=== PATIENT | female | born 1930 | race Caucasian/White ===

== ENCOUNTER 2022-01-27 15:29 | Inpatient (IN) | payer OTHER ==
[~2022-01-27] VITALS: Ht 162.6 cm; Wt 49.9 kg
[2022-01-27 17:24] LABS: INR 0.94 (0.9-1.15)
[2022-01-27 17:52] LABS: Albumin 3.2 g/dL (3.4-5.0); Calcium 8.8 mg/dL (8.5-10.1); Potassium 4.1 mmol/L (3.5-5.1)
[2022-01-27 17:55] LABS: Bilirubin, Total 0.3 mg/dL (0.2-1.0)
[2022-01-27 18:11] LABS: Urine Bacteria NONE SEEN /hpf (None Seen); Urine Blood Negative /uL (Negative); Urine Specific Gravity 1.009 (1.001-1.035); Urine WBC <1 /hpf (0 - 5)
[2022-01-27 19:00] LABS: Basophils # (auto) 0 10 ^3/uL (0-0.2); Basophils % (auto) 0.4 % (0.0-2.0); Eosinophils # (auto) 0.1 10 ^3/uL (0-0.8); Eosinophils % (auto) 0.4 % (0.0-7.0); Hematocrit 32.8 % (36.0-46.0); Hemoglobin 11.1 g/dL (12.2-16.2); Lymphocytes # (auto) 1.2 10 ^3/uL (0.4-5.4); Lymphocytes % (auto) 9.3 % (10.0-50.0); Mean Corpuscular Hemoglobin 29.2 pg (28.0-32.0); Mean Corpuscular Hgb Conc. 33.8 g/dL (32.0-36.0); Mean Corpuscular Volume 86.4 fL (80.0-100.0); Monocytes # (auto) 0.8 10 ^3/uL (0-1.3); Neutrophils % (auto) 83.9 % (37.0-80.0); Red Blood Cells 3.79 10^6/uL (4.0-5.20); Red Cell Distribution Width 13.7 % (11.8-14.3); White Blood Cell 13.1 10^3/uL (4.4-10.8)
[2022-01-27] MEDS ORDERED: MORPHINE SULFATE 4 MG/ML SYR/VIAL IV ONE (19:15)
[2022-01-27] MEDS ORDERED: ONDANSETRON HCL 4 MG/2 ML VIAL IV ONE (19:15)
[2022-01-28] MEDS ORDERED: MORPHINE SULFATE INJ 2 MG/ml SYRG IV ONE (03:45)
[2022-01-28] MEDS ORDERED: ACETAMINOPHEN 325 MG TAB PO PRN (06:45)
[2022-01-28] MEDS ORDERED: MORPHINE SULFATE INJ 2 MG/ml SYRG IV PRN (06:45)
[2022-01-28] MEDS ORDERED: NITROGLYCERIN 0.4 MG SL TAB SL PRN (06:45)
[2022-01-28] MEDS: MORPHINE SULFATE INJ 2 MG/ml SYRG IV PRN ×2 (08:36→19:52)
[2022-01-29] MEDS: MORPHINE SULFATE INJ 2 MG/ml SYRG IV PRN (00:53)
[2022-01-29] MEDS: D5W/SOD CHLO 0.9% 1,000 ML IV SCH ×2 (00:54→12:35)
[2022-01-29 07:02] LABS: Basophils # (auto) 0 10 ^3/uL (0-0.2); Basophils % (auto) 0.3 % (0.0-2.0); Eosinophils # (auto) 0.3 10 ^3/uL (0-0.8); Eosinophils % (auto) 2.2 % (0.0-7.0); Hematocrit 33.4 % (36.0-46.0); Hemoglobin 11.3 g/dL (12.2-16.2); Lymphocytes % (auto) 6.9 % (10.0-50.0); Mean Corpuscular Hemoglobin 29.3 pg (28.0-32.0); Mean Corpuscular Hgb Conc. 33.8 g/dL (32.0-36.0); Mean Corpuscular Volume 86.5 fL (80.0-100.0); Monocytes # (auto) 0.9 10 ^3/uL (0-1.3); Monocytes % (auto) 6.2 % (0.0-12.0); Neutrophils # (auto) 11.7 10 ^3/uL (1.6-8.6); Neutrophils % (auto) 84.4 % (37.0-80.0); Red Blood Cells 3.86 10^6/uL (4.0-5.20); Red Cell Distribution Width 13.9 % (11.8-14.3); White Blood Cell 13.9 10^3/uL (4.4-10.8)
[2022-01-29 07:06] LABS: Calcium 8.8 mg/dL (8.5-10.1); Magnesium 2.3 mg/dL (1.6-2.6); Potassium 3.8 mmol/L (3.5-5.1)
[2022-01-29 07:12] LABS: BUN/Creatinine Ratio 21.6
[2022-01-29 09:00] VITALS: BP 129/43
[2022-01-29] MEDS ORDERED: DONE1TAB88 PO (10:08)
[2022-01-29] MEDS ORDERED: ASPI-543 PO (11:42)
[2022-01-29] MEDS ORDERED: LORA10TA6 PO (11:45)
[2022-01-29] MEDS ORDERED: VALS40TA2 PO (11:45)
[2022-01-29 13:00] VITALS: BP 117/49
[2022-01-29] MEDS ORDERED: OLAN20TA PO (13:16)
[2022-01-29] MEDS ORDERED: LORA0.5T20 PO (13:16)
[2022-01-29 17:00] VITALS: BP 111/48
[2022-01-29] MEDS: D5W/SOD CHL 0.45% 1,000 ML IV SCH (20:00)
[2022-01-29 22:00] VITALS: BP 145/94
[2022-01-29] MEDS ORDERED: OLANZapine 5 MG TAB PO ONE (22:00)
[2022-01-30 04:00] VITALS: BP 132/78
[2022-01-30 08:51] VITALS: BP 133/63
[2022-01-30] MEDS ORDERED: VALSARTAN 80 MG TAB PO SCH (10:00)
[2022-01-30] MEDS: LORazepam 0.5 MG TAB PO PRN (11:50)
[2022-01-30] MEDS: D5W/SOD CHL 0.45% 1,000 ML IV SCH (12:49)
[2022-01-30 13:05] VITALS: BP 119/98
[2022-01-30] MEDS: HYDROcodone-ACET 5/325MG TAB PO PRN (13:22)
[2022-01-30] MEDS ORDERED: ENOXAPARIN SOD 40 MG/0.4 ML SYRINGE SC ONE (13:45)
[2022-01-30] MEDS ORDERED: FAMOTIDINE 20 MG TAB PO ONE (13:45)
[2022-01-30 16:33] VITALS: BP 114/65
[2022-01-30] MEDS ORDERED: ADENOSINE 6 MG/2 ML INJ IV ONE ×2 (20:03→20:07)
[2022-01-30] MEDS ORDERED: ETOMIDATE (2MG/ML) 20ML VIAL IV ONE (20:27)
[2022-01-30 21:52] VITALS: BP 145/73
[2022-01-30] MEDS ORDERED: FUROSEMIDE 20 MG/2 ML VIAL IV ONE (23:30)
[2022-01-30] MEDS ORDERED: METOPROLOL TARTRATE 25 MG TAB PO ONE (23:30)
[2022-01-31] MEDS: OLANZapine 5 MG TAB PO SCH ×2 (00:15→22:54)
[2022-01-31] MEDS: HYDROcodone-ACET 5/325MG TAB PO PRN ×2 (00:57→10:02)
[2022-01-31 08:49] VITALS: BP 140/95
[2022-01-31] MEDS: FUROSEMIDE 20 MG/2 ML VIAL IV SCH (09:47)
[2022-01-31] MEDS: FAMOTIDINE 20 MG TAB PO SCH (09:48)
[2022-01-31] MEDS: ENOXAPARIN SOD 40 MG/0.4 ML SYRINGE SC SCH (09:48)
[2022-01-31 09:57] LABS: Albumin 2.8 g/dL (3.4-5.0); Calcium 8.3 mg/dL (8.5-10.1); Potassium 3.9 mmol/L (3.5-5.1)
[2022-01-31] MEDS ORDERED: METOPROLOL TARTRATE 25 MG TAB PO SCH (10:00)
[2022-01-31 10:01] LABS: BUN/Creatinine Ratio 23.5; Bilirubin, Total 0.8 mg/dL (0.2-1.0); Total Protein 7.1 g/dL (6.4-8.2)
[2022-01-31 10:05] LABS: Basophils # (auto) 0.3 10 ^3/uL (0-0.2); Basophils % (auto) 1.7 % (0.0-2.0); Eosinophils # (auto) 0.9 10 ^3/uL (0-0.8); Eosinophils % (auto) 5.5 % (0.0-7.0); Hematocrit 34.5 % (36.0-46.0); Hemoglobin 11.6 g/dL (12.2-16.2); Lymphocytes # (auto) 1.2 10 ^3/uL (0.4-5.4); Mean Corpuscular Hemoglobin 29.4 pg (28.0-32.0); Mean Corpuscular Hgb Conc. 33.7 g/dL (32.0-36.0); Mean Corpuscular Volume 87.3 fL (80.0-100.0); Monocytes # (auto) 0.9 10 ^3/uL (0-1.3); Monocytes % (auto) 5.7 % (0.0-12.0); Neutrophils # (auto) 12.4 10 ^3/uL (1.6-8.6); Neutrophils % (auto) 79.1 % (37.0-80.0); Nucleated Red Blood Cells % 0.1 %; Red Blood Cells 3.95 10^6/uL (4.0-5.20); Red Cell Distribution Width 13.6 % (11.8-14.3); White Blood Cell 15.6 10^3/uL (4.4-10.8)
[2022-01-31 10:23] LABS: INR 1.03 (0.9-1.15); Partial Thromboplastin Time 26.8 sec (23.6-33.0)
[2022-01-31] MEDS ORDERED: METOPROLOL TARTRATE 1MG/1ML-5ML VIAL IV PRN (12:45)
[2022-01-31] MEDS ORDERED: METOPROLOL TARTRATE 25 MG TAB PO ONE (12:45)
[2022-01-31 13:00] VITALS: BP 103/61
[2022-01-31] MEDS ORDERED: AMIODARONE HCL 150 MG in D5W 5% 100 ML IV ONE (14:00)
[2022-01-31] MEDS ORDERED: AMIODARONE 450mg/250ml AE 250 ML IV SCH (14:15)
[2022-01-31 17:27] VITALS: BP 123/48
[2022-01-31] MEDS: AMIODARONE 450mg/250ml AE 250 ML IV SCH (20:33)
[2022-01-31 21:30] VITALS: BP 125/79
[2022-01-31] MEDS: METOPROLOL TARTRATE 25 MG TAB PO SCH (22:46)
[2022-02-01] MEDS: LORazepam 0.5 MG TAB PO PRN ×2 (01:14→12:56)
[2022-02-01] MEDS: MORPHINE SULFATE INJ 2 MG/ml SYRG IV PRN (02:30)
[2022-02-01 05:00] VITALS: BP 118/68
[2022-02-01] MEDS: FUROSEMIDE 20 MG/2 ML VIAL IV SCH (08:48)
[2022-02-01] MEDS: ENOXAPARIN SOD 40 MG/0.4 ML SYRINGE SC SCH (08:48)
[2022-02-01] MEDS: FAMOTIDINE 20 MG TAB PO SCH (08:48)
[2022-02-01] MEDS: METOPROLOL TARTRATE 25 MG TAB PO SCH ×2 (08:48→22:44)
[2022-02-01 09:00] VITALS: BP 119/84
[2022-02-01] MEDS: AMIODARONE 450mg/250ml AE 250 ML IV SCH (12:19)
[2022-02-01 13:00] VITALS: BP 123/50
[2022-02-01] MEDS: HYDROcodone-ACET 5/325MG TAB PO PRN (17:31)
[2022-02-01 22:00] VITALS: BP 121/53
[2022-02-01] MEDS: OLANZapine 5 MG TAB PO SCH (22:44)
[2022-02-01] MEDS: AMIODARONE HCL 200 MG TAB PO SCH (22:44)
[2022-02-02] MEDS: LORazepam 0.5 MG TAB PO PRN (01:52)
[2022-02-02 05:00] VITALS: BP 125/74
[2022-02-02 08:56] VITALS: BP 130/45
[2022-02-02] MEDS: FUROSEMIDE 20 MG/2 ML VIAL IV SCH (10:00)
[2022-02-02] MEDS: METOPROLOL TARTRATE 25 MG TAB PO SCH ×3 (10:00→22:00)
[2022-02-02] MEDS: ENOXAPARIN SOD 40 MG/0.4 ML SYRINGE SC SCH (10:30)
[2022-02-02] MEDS: FAMOTIDINE 20 MG TAB PO SCH (10:30)
[2022-02-02] MEDS: AMIODARONE HCL 200 MG TAB PO SCH ×3 (10:30→22:00)
[2022-02-02 13:00] VITALS: BP 149/60
[2022-02-02 17:00] VITALS: BP 121/63
[2022-02-02] MEDS: OLANZapine 5 MG TAB PO SCH ×2 (21:49→22:00)
[2022-02-02 22:00] VITALS: BP 139/53
[2022-02-03 05:00] VITALS: BP 120/45
[2022-02-03 08:52] VITALS: BP 104/44
[2022-02-03] MEDS: FUROSEMIDE 20 MG/2 ML VIAL IV SCH (09:52)
[2022-02-03] MEDS: METOPROLOL TARTRATE 25 MG TAB PO SCH (09:53)
[2022-02-03] MEDS: FAMOTIDINE 20 MG TAB PO SCH (10:00)
[2022-02-03] MEDS: AMIODARONE HCL 200 MG TAB PO SCH (10:00)
[2022-02-03] MEDS: ENOXAPARIN SOD 40 MG/0.4 ML SYRINGE SC SCH (10:01)
== END 2022-02-03 11:30 | disposition hospice, home (50) | DRG 536 ==
LOC: EDBD 15:29 → ER 15:29 → TELE 01-28 06:32 → TELE-WESTW 01-29 09:02
PROVIDERS: ADMIT Nurse Practitioner; ATTEND Internal Medicine Geriatric Medicine
PROC: 5A2204Z Restoration of Cardiac Rhythm, Single (ICD-10-PCS; principal; 2022-01-28)
DX: S72.141A Displaced intertrochanteric fracture of right femur, initial encounter for closed fracture (principal); E44.0 Moderate protein-calorie malnutrition; I47.1 Supraventricular tachycardia; I10 Essential (primary) hypertension; F03.90 Unspecified dementia, unspecified severity, without behavioral disturbance, psychotic disturbance, mood disturbance, and anxiety; F41.9 Anxiety disorder, unspecified; Z66 Do not resuscitate; I08.0 Rheumatic disorders of both mitral and aortic valves; I95.9 Hypotension, unspecified; Z20.822 Contact with and (suspected) exposure to COVID-19; Z51.5 Encounter for palliative care; Z68.21 Body mass index [BMI] 21.0-21.9, adult; Z95.2 Presence of prosthetic heart valve; W01.0XXA Fall on same level from slipping, tripping and stumbling without subsequent striking against object, initial encounter; Y93.89 Activity, other specified; Y92.89 Other specified places as the place of occurrence of the external cause; Y99.8 Other external cause status
CPT/HCPCS: 36415; 71045; 72192; 73502; 80048; 80053; 81001; 83036; 83735; 84484; 85025; 85610; 85730; 86850; 86900; 86901; 93005; 93306; 96374; 96376; 99291; G0378; J0153; J7060